=== PATIENT | male | born 1970 | race African-American/Black ===

== ENCOUNTER 2020-05-16 06:24 | Inpatient (IN) | payer BC, OTHER ==
[2020-05-09 10:58] VITALS: BMI 35.5
[2020-05-16] MEDS ORDERED: LOCK ITEM NR ONE (06:32)
[2020-05-16] MEDS ORDERED: PROPOFOL 20 ML ONE ×9 (07:19)
[2020-05-16] MEDS ORDERED: TRANEXAMIC ACID 1000 MG/10 ML VIAL ONE (07:20)
[2020-05-16] MEDS ORDERED: MIDAZOLAM HCL 2 MG/2 ML SINGLE DOSE VIAL ONE ×2 (07:33→09:30)
[2020-05-16] MEDS ORDERED: BUPIVACAINE HCL/PF 2.5 MG/ML - 30 ML VIAL IJ ONE (07:34)
[2020-05-16] MEDS ORDERED: ONDANSETRON 4 MG/2 ML VIAL IVPUSH PRN (12:32)
[2020-05-16] MEDS ORDERED: MAG HYDROX/AL HYDROX/SIMETH 30 ML UNIT-DOSE CUP PO PRN (12:32)
[2020-05-16] MEDS ORDERED: MAGNESIUM HYDROX 2400MG/30ML ORAL SUSPENSION 30 ML CUP PO PRN (12:32)
[2020-05-16] MEDS ORDERED: LACTATED RINGERS SOLUTION 1,000 ML IV SCH ×2 (12:45)
[2020-05-16] MEDS: KETOROLAC TROMETHAMINE 30 MG/1 ML VIAL IVPUSH ONE ×2 (12:55→21:57)
[2020-05-16] MEDS: oxyCODONE HCL 10 MG SUSTAINED ACTING TABLET PO SCH (15:33)
[2020-05-16] MEDS ORDERED: DEXTROSE 5%-WATER 100 ML IVPB ONE ×2 (17:05→23:01)
[2020-05-16] MEDS ORDERED: ceFAZolin SODIUM 1 GM VIAL ONE ×2 (17:05→23:01)
[2020-05-16] MEDS: CEFAZOLIN 3 GM in DEXTROSE 5%-WATER 100 ML IVPB SCH ×2 (17:08→23:07)
[2020-05-16] MEDS: ASPIRIN COATED 81 MG TABLET.EC PO SCH (21:21)
[2020-05-16] MEDS: CELECOXIB 200 MG CAPSULE PO SCH (21:21)
[2020-05-16] MEDS: SENNOSIDES/DOCUSATE COMBO (SENNA PLUS) TABLET (UD) PO SCH (21:21)
[2020-05-16] MEDS: oxyCODONE HCL 5 MG TABLET PO PRN (21:23)
[2020-05-16] MEDS ORDERED: GABAPENTIN 300 MG CAPSULE PO SCH (22:00)
[2020-05-17] MEDS: oxyCODONE HCL 5 MG TABLET PO PRN ×2 (01:48→07:06)
[2020-05-17] MEDS ORDERED: ceFAZolin SODIUM 1 GM VIAL ONE (03:13)
[2020-05-17] MEDS ORDERED: DEXTROSE 5%-WATER 100 ML IVPB ONE (03:13)
[2020-05-17] MEDS: oxyCODONE HCL 10 MG SUSTAINED ACTING TABLET PO SCH ×2 (04:03→15:31)
[2020-05-17] MEDS: CEFAZOLIN 3 GM in DEXTROSE 5%-WATER 100 ML IVPB SCH (04:03)
[2020-05-17 08:13] LABS: HEMATOCRIT 32.7 % (35.4-49); MCH 32.1 pg (25.7-33.7); MCHC 33.7 g/dl (32.0-35.9); MEAN CELL VOLUME 95.2 fl (80-96); MEAN PLT VOLUME 7.7 fl (7.5-11.1); PLATELET COUNT 240 K/MM3 (134-434); RBC 3.43 M/mm3 (4.00-5.60); RDW 12.1 % (11.9-15.9); WHITE BLOOD COUNT 15.4 K/mm3 (4.0-10.8)
[2020-05-17 08:15] LABS: CALCIUM 8.3 mg/dl (8.5-10); CREATININE 0.8 mg/dl (0.55-1.3)
[2020-05-17] MEDS: SENNOSIDES/DOCUSATE COMBO (SENNA PLUS) TABLET (UD) PO SCH ×2 (09:00→22:10)
[2020-05-17] MEDS: PANTOPRAZOLE 40 MG TABLET PO SCH (09:03)
[2020-05-17] MEDS: ASPIRIN COATED 81 MG TABLET.EC PO SCH ×2 (09:04→22:09)
[2020-05-17] MEDS: CELECOXIB 200 MG CAPSULE PO SCH ×2 (09:04→22:09)
[2020-05-17] MEDS ORDERED: MULTIVITAMINS (DAILY MVI) TABLET (FP) PO SCH (10:00)
[2020-05-18] MEDS: oxyCODONE HCL 10 MG SUSTAINED ACTING TABLET PO SCH ×2 (06:16→16:19)
[2020-05-18] MEDS: oxyCODONE HCL 5 MG TABLET PO PRN ×4 (06:17→21:59)
[2020-05-18 08:01] LABS: HEMOGLOBIN 11.1 GM/dl (11.7-16.9); MCH 31.8 pg (25.7-33.7); MCHC 33.8 g/dl (32.0-35.9); MEAN PLT VOLUME 7.3 fl (7.5-11.1); PLATELET COUNT 232 K/MM3 (134-434); RBC 3.51 M/mm3 (4.00-5.60); RDW 12.1 % (11.9-15.9)
[2020-05-18] MEDS: SENNOSIDES/DOCUSATE COMBO (SENNA PLUS) TABLET (UD) PO SCH ×2 (09:16→21:58)
[2020-05-18] MEDS: PANTOPRAZOLE 40 MG TABLET PO SCH (09:16)
[2020-05-18] MEDS: ASPIRIN COATED 81 MG TABLET.EC PO SCH ×2 (09:16→21:58)
[2020-05-18] MEDS: CELECOXIB 200 MG CAPSULE PO SCH ×2 (09:16→21:58)
[2020-05-18] MEDS ORDERED: ACETAMINOPHEN 325 MG TABLET (FP) ONE (22:10)
[2020-05-18] MEDS: ACETAMINOPHEN 325 MG TABLET (FP) PO PRN (22:11)
[2020-05-19] MEDS: oxyCODONE HCL 10 MG SUSTAINED ACTING TABLET PO SCH (03:37)
[2020-05-19] MEDS: oxyCODONE HCL 5 MG TABLET PO PRN (06:43)
[2020-05-19] MEDS: ACETAMINOPHEN 325 MG TABLET (FP) PO PRN (06:44)
[2020-05-19] MEDS: SENNOSIDES/DOCUSATE COMBO (SENNA PLUS) TABLET (UD) PO SCH (10:18)
[2020-05-19] MEDS: PANTOPRAZOLE 40 MG TABLET PO SCH (10:18)
[2020-05-19] MEDS: CELECOXIB 200 MG CAPSULE PO SCH (10:18)
[2020-05-19] MEDS: ASPIRIN COATED 81 MG TABLET.EC PO SCH (10:18)
[2020-05-19 11:36] VITALS: BP 110/69; PULSE 88; TEMP 98
== END 2020-05-19 10:45 | disposition home or self-care (01) | DRG 301 ==
LOC: FM/S 06:24
PROVIDERS: ADMIT Orthopaedic Surgery Adult Reconstructive Orthopaedic Surgery; ATTEND Orthopaedic Surgery Adult Reconstructive Orthopaedic Surgery
PROC: 0SR90JZ Replacement of Right Hip Joint with Synthetic Substitute, Open Approach (ICD-10-PCS; principal; 2020-05-16 09:42)
DX: M12.551 Traumatic arthropathy, right hip (principal); T14.90XS Injury, unspecified, sequela; X58.XXXS Exposure to other specified factors, sequela; Z98.84 Bariatric surgery status; F17.200 Nicotine dependence, unspecified, uncomplicated
CPT/HCPCS: 36415; 73502-TC-RT-FY; 80048; 85027; 88304-TC; 88311-TC; 94760; 97010-GP; 97116-GP; 97162-GP